=== PATIENT | female | born 1975 | race Caucasian/White ===

== ENCOUNTER → 2018-12-21 08:25 | Outpatient (CLI) | payer OTHER, MEDICAID, SELFPAY ==
[2018-12-21 09:15] LABS: Add Manual Diff / Slide Review NO; Basophils Absolute Auto 100 /uL (0-100); Basophils Percent Auto 1.2 % (0-2); Eosinophils Absolute Auto 0 /uL (0-450); Eosinophils Percent Auto 0.8 % (2-4); Hematocrit 39.1 % (36-46); Hemoglobin 13.2 g/dL (12.0-16.0); Lymphocytes Absolute Auto 1600 /uL (1100-4500); Lymphocytes Percent Auto 28.1 % (25-40); Mean Corpuscular HGB Conc 33.8 % (30-36); Mean Corpuscular Hemoglobin 32.2 PG (26-34); Mean Corpuscular Volume 95.2 fL (80-100); Monocytes Absolute Auto 400 /uL (0-900); Monocytes Percent Auto 6.7 % (3-14); Neutrophils Absolute Auto 3600 /uL (1500-7000); Neutrophils Percent Auto 63.2 % (50-75); Platelet Count 260 X10^3/uL (150-400); Red Blood Cell Count 4.11 X10^6/uL (4.0-5.2); Red Cell Distribution Width 12.2 % (11.6-14.8); White Blood Cell Count 5.8 X10^3/uL (4.5-11.0)
[2018-12-21 09:40] LABS: Alanine Aminotransferase 22 IU/L (9-52); Albumin 4.7 g/dL (3.5-5.0); Albumin Globulin Ratio 1.5 (1.0-2.8); Alkaline Phosphatase 53 U/L (38-126); Aspartate Aminotransferase 26 IU/L (14-36); Bilirubin Total 0.6 mg/dL (0.2-1.3); Blood Urea Nitrogen 12 mg/dL (7-17); Calcium 9.5 mg/dL (8.4-10.2); Carbon Dioxide 29 mmol/L (22-32); Chloride 102 mmol/L (98-107); Cholesterol 136 mg/dL (140-199); Estimated Glomerular Filt Rate > 60.0 mL/min (>60); Globulin 3.2 g/dL (1.7-4.1); Glucose 89 mg/dL (70-100); HDL Cholesterol 45 mg/dL (40-60); HEMOLYSIS < 15 (0-50); LDL Cholesterol Calculated 72 mg/dL (<100); Potassium 3.5 mmol/L (3.4-5.1); Sodium 139 mmol/L (137-145); Total Protein 7.9 g/dL (6.3-8.2); Triglycerides 96 mg/dL (35-150)
[2018-12-21 09:56] LABS: Free T3, Triiodothyronine Free 3.15 pg/mL (2.77-5.27); Free T4, Direct Thyroxine 0.93 ng/dL (0.78-2.19)
[2018-12-21 10:09] LABS: Thyroid Stimulating Hormone 0.87 uIU/mL (0.47-4.68)
== END ==
PROVIDERS: PCP Nurse Practitioner; Visit Provider Nurse Practitioner
DX: Z00.00 Encounter for general adult medical examination without abnormal findings (principal); F41.8 Other specified anxiety disorders; Z82.49 Family history of ischemic heart disease and other diseases of the circulatory system; Z82.3 Family history of stroke
CPT/HCPCS: 36415; 80053; 80061; 84439; 84443; 84481; 85025

== ENCOUNTER → 2018-12-25 15:26 | Outpatient (CLI) | payer OTHER, MEDICAID, SELFPAY ==
[2018-12-25 18:00] LABS: Hepatitis B Surface Antigen NEGATIVE s/c (NEGATIVE)
[2018-12-25 18:12] LABS: HIV 1 & 2 Ab/Ag 4th Gen Combo NEGATIVE (NEGATIVE); Hep C Virus Ab w/Reflex Quant NEGATIVE s/c (NEGATIVE)
[2018-12-28 09:10] LABS: Hepatitis B Surf Ab Qualitativ Nonreactive (Nonreactive)
[2018-12-28 16:47] LABS: Syphilis AB Cascading Reflex NEGATIVE (Negative)
[2019-01-01 14:43] LABS: HSV 1 IgM Screen Positive (Negative); HSV 2 IgM Screen Negative (Negative)
== END ==
PROVIDERS: PCP Nurse Practitioner; Visit Provider Nurse Practitioner
DX: Z11.3 Encounter for screening for infections with a predominantly sexual mode of transmission (principal)
CPT/HCPCS: 36415; 86695; 86696; 86706; 86780; 86803; 87340; 87389

== ENCOUNTER 2019-02-02 08:18 | Emergency (ER) | payer OTHER, MEDICAID, SELFPAY ==
[2019-02-02 08:25] VITALS: BP 108/90; PULSE 88; RESP 18; TEMP 36.5; O2SAT 100; BMI 23.3
[2019-02-02] MEDS: CYCLOBENZAPRINE 10 MG TABLET PO (08:57)
[2019-02-02] MEDS: IBUPROFEN 400 MG TABLET PO (08:57)
[2019-02-02 09:19] VITALS: BP 107/74; PULSE 70; RESP 16; O2SAT 100
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
== END 2019-02-02 09:21 | disposition home or self-care (01) ==
PROVIDERS: Emergency Provider Emergency Medicine; PCP Nurse Practitioner
DX: M25.512 Pain in left shoulder (principal)
CPT/HCPCS: 99282; 99283

== ENCOUNTER 2019-02-26 08:04 | Emergency (ER) | payer OTHER, MEDICAID, SELFPAY ==
[2019-02-26 08:20] VITALS: BP 117/81; PULSE 94; RESP 16; TEMP 36.1; O2SAT 100; BMI 22.4
[2019-02-26 09:48] LABS: Add Manual Diff / Slide Review NO; Basophils Absolute Auto 0 /uL (0-100); Basophils Percent Auto 0.6 % (0-2); Eosinophils Absolute Auto 100 /uL (0-450); Eosinophils Percent Auto 1.1 % (2-4); Hematocrit 39.2 % (36-46); Hemoglobin 13.6 g/dL (12.0-16.0); Lymphocytes Absolute Auto 1900 /uL (1100-4500); Lymphocytes Percent Auto 26.1 % (25-40); Mean Corpuscular HGB Conc 34.6 % (30-36); Mean Corpuscular Hemoglobin 32.8 PG (26-34); Mean Corpuscular Volume 94.8 fL (80-100); Monocytes Absolute Auto 400 /uL (0-900); Monocytes Percent Auto 5.8 % (3-14); Neutrophils Absolute Auto 4700 /uL (1500-7000); Neutrophils Percent Auto 66.4 % (50-75); Platelet Count 298 X10^3/uL (150-400); Red Blood Cell Count 4.14 X10^6/uL (4.0-5.2); Red Cell Distribution Width 12.4 % (11.6-14.8); White Blood Cell Count 7.2 X10^3/uL (4.5-11.0)
[2019-02-26] MEDS: KETOROLAC 60 MG/2 ML VIAL 30 MG IV (09:48)
[2019-02-26] MEDS: SODIUM CHLORIDE 0.9% 1,000 ML 1000 ML IV (09:48)
[2019-02-26] MEDS: HYDROMORPHONE 0.5 MG INJ IV (09:49)
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
[2019-02-26 09:59] LABS: Alanine Aminotransferase 25 IU/L (<35); Albumin 4.9 g/dL (3.5-5.0); Albumin Globulin Ratio 1.5 (1.0-2.8); Alkaline Phosphatase 67 U/L (38-126); Aspartate Aminotransferase 25 IU/L (14-36); BUN Creatinine Ratio 23.8 (6-22); Bilirubin Total 0.5 mg/dL (0.2-1.3); Blood Urea Nitrogen 19 mg/dL (7-17); Calcium 9.9 mg/dL (8.4-10.2); Carbon Dioxide 28 mmol/L (22-32); Chloride 103 mmol/L (98-107); Estimated Glomerular Filt Rate > 60.0 mL/min (>60); Globulin 3.3 g/dL (1.7-4.1); Glucose 83 mg/dL (70-100); HEMOLYSIS < 15 (0-50); Lipase 73 U/L (23-300); Potassium 4.3 mmol/L (3.4-5.1); Sodium 140 mmol/L (137-145); Total Protein 8.2 g/dL (6.3-8.2)
[2019-02-26 10:00] VITALS: BP 101/75
[2019-02-26 10:30] VITALS: BP 100/64
[2019-02-26 11:30] VITALS: BP 99/62; PULSE 100; RESP 17; O2SAT 100
--- NOTE | 2019-02-26 11:35 | DI.CT.S_ITS ---
PROCEDURE: CT ABDOMEN PELVIS W CON INDICATIONS: abdominal pain TECHNIQUE: After the administration of intravenous contrast, 5 mm thick sections acquired from the diaphragm to the symphysis. 5 mm coronal and sagittal reformats were acquired. For radiation dose reduction, the following was used: automated exposure control, adjustment of mA and/or kV according to patient size. COMPARISON: None. FINDINGS: Image quality: Excellent. ABDOMEN: Lung bases: Lung bases are clear. Heart size is normal. Solid organs: Liver is enlarged with steatosis. Gallbladder is unremarkable. Biliary system is non dilated. Pancreas enhances normally. Spleen is normal in size and enhancement. No adrenal nodules. Kidneys demonstrate normal size and enhancement, without hydronephrosis. Peritoneum and bowel: Bowel loops demonstrate normal wall thickness and caliber. No free fluid or air. Appendix is unremarkable. There is likely a punctate appendicolith within the terminal appendix. No surrounding inflammatory change. Nodes and vessels: No retroperitoneal or mesenteric adenopathy by size criteria. Aorta and inferior vena cava are normal in size. Miscellaneous: No ventral hernias. PELVIS: Genitourinary: Bladder wall thickness is normal. 17 mm low attenuation focus is present within the left ovary. Miscellaneous: No inguinal hernias or adenopathy. Bones: No suspicious bony lesions. No vertebral body compression fractures. IMPRESSION: 1. 17 mm focus of low attenuation within the left ovary suspicious for cyst. As clinically indicated, pelvic ultrasound may be obtained. 2. Appendix is unremarkable. Dictated by: Roberta Borges M.D. on 02/26/2019 at 12:06 Approved by: Roberta Borges M.D. on 02/26/2019 at 12:09
[2019-02-26 12:30] VITALS: BP 107/64; PULSE 77; RESP 16; O2SAT 100
[2019-02-26 14:00] VITALS: BP 108/64; PULSE 72; RESP 14; O2SAT 100
== END 2019-02-26 14:00 | disposition home or self-care (01) ==
PROVIDERS: Emergency Provider Emergency Medicine; PCP Nurse Practitioner
DX: S39.012A Strain of muscle, fascia and tendon of lower back, initial encounter (principal); T50.905A Adverse effect of unspecified drugs, medicaments and biological substances, initial encounter; S46.912D Strain of unspecified muscle, fascia and tendon at shoulder and upper arm level, left arm, subsequent encounter; R10.30 Lower abdominal pain, unspecified
CPT/HCPCS: 36415; 74177; 80053; 81003; 81025; 83690; 85025; 96361; 96374; 96375; 99284; J1170; J1885; Q9967

== ENCOUNTER 2019-04-30 15:15 | Outpatient (RCR) | payer OTHER, MEDICAID, SELFPAY ==
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
--- NOTE | 2019-04-02 16:40 | PT.OPPOC ---
Physical, Occupational & Speech Therapy At [facility] Current Diagnoses Pain in right hip (04/02/19) Right lower quadrant pain (04/02/19) Other symptoms and signs involving the musculoskeletal system (04/02/19) Visit Care Team Role Provider Type AYESHA Mccarty Attending Provider Advanced Channel Sales Director Primary Care Provider Referring Provider Specialty: Family Practice Address: [address] [place] [address], [facility] Email: [email or web address] Plan Of Care PT-OP-T Assessment and Plan Start: 04/02/19 12:58 Freq: Status: Active Protocol: Document 04/02/19 15:20 HH (Rec: 04/02/19 16:38 HH [email or web address]) Physical Therapy Assessment Rehab Potential Rehabilitation Potential Excellent Evaluation Complexity Number of Personal Factors/Comorbidities 1-2 Number of Body Systems Impaired 1-2 Clinical Presentation at Evaluation Stable Impairments Impairments Functional Activities, Functional Mobility,Pain, Posture,ROM,Sensation,Soft Tissue Mobility,Strength Goals neurological symptoms Impairment Pt has intermittent tingling sensation down to her L arm and hand everyday Short Term Goal (STG) Pt will have no more than 4 days/ week to experience neurological symptoms such as tingling/ numbness down to her L UE. STG Duration 4 weeks Jail Goal (LTG) Pt will have no more than 2 days/ week to experience neurological symptoms such as tingling/ numbness down to her L UE. LTG Duration 8 weeks ROM Impairment lack of cervical AROM d/t pain Short Term Goal (STG) Pt will increase L cervical rotation / lateral flexion by 10 degrees actively without increase neck/ L shoulder discomfort STG Duration 4 weeks Rocket Assembly Operator Goal (LTG) Pt will increase L cervical rotation / lateral flexion by 15 degrees actively without increase neck/ L shoulder discomfort LTG Duration 8 weeks Pain Impairment pt has significant pain 7-9 for head/ L shoulder movement Short Term Goal (STG) Pt will be able to tolerate active cervical / shoulder ROM without increase neck/ shoulder pain more than 5/10 STG Duration 4 weeks Rocket Assembly Operator Goal (LTG) Pt will be able to tolerate active cervical / shoulder ROM without increase neck/ shoulder pain more than 2/10 LTG Duration 8 weeks nDI Impairment will assess next time Quickdash Impairment Will assess next time Assessment Summary Assessment Pt is a 43 yo male presents to clinic with referral of R hip pain. However, pt reports she does not have hip pain but L shoulder and neck pain > LBP > hip pain started since Dec, 2018 who believes she injured herself while lifting heavy pot at work. Upon assessment, pt presents cervical radiculopathy symptoms due to her reproduced radiating L shoulder and arm pain and tingling sensation with +ve findings on Spurling, foraminal compression and facet joint tests. Pt is also very anxious about her current condition and needed PT's constant reassurance for her prognosis. 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 Pt will still be a good candidate for skilled therapy to address her aforementioned symptoms and impairments which includes manual therapy, cervical stabilization and strengthening and work conditioning. Physical Therapy Plan Frequency and Duration Frequency of Treatment 2x/Week Duration of Treatment 8 weeks Plan of Care Start Date 04/02/19 Plan of Care End Date 06/01/19 Therapeutic Interventions Therapeutic Interventions Gait Training,Home Exercise Program,Joint Mobilizations, Manual Therapy,Neuromuscular Re-education,Patient/Caregiver Education,Self-Care/Home Management,Soft Tissue Mobilization,Taping, Therapeutic Activities, Therapeutic Exercises Next Visit Focus/Plan Next Note Type Treatment Note Next Visit Plan assess post distraction tolerance shoulder ROM, strength, UTTT cervical distraction, neck stretch, manual therapy for levator, suboccipital, trap Plan of Care Dates Plan of Care Start Date 04/02/19 Plan of Care End Date 06/01/19 Electronically Signed by: Nancy Padgett PT 04/02/19 1640 Please Sign and Return: I have reviewed this Plan of Care and certify that the skilled therapy services above are required to meet the patient?s needs. Physician Signature Date Printed Name and Credentials Clinical Instructor Signature Printed Name and Credentials
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
--- NOTE | 2019-11-19 10:52 | PT.OPDS ---
Current Diagnoses Pain in right hip (04/30/19) Right lower quadrant pain (04/30/19) Other symptoms and signs involving the musculoskeletal system (04/30/19) Visit Care Team Role Provider Type AYESHA Mccarty Attending Provider Advanced Time Cycle Operator Primary Care Provider Referring Provider Specialty: Family Practice Address: [address] [place] [address], [facility] Email: [email or web address] Visit Number Visit Number 04/22 Discharge Summary PT-OP-T Assessment and Plan Start: 04/02/19 12:58 Freq: Status: Active Protocol: Document 11/19/19 10:51 (Rec: 11/19/19 10:52 [id number]) Physical Therapy Plan Discharge Physical Therapy Discharge Reasons No Longer Attending PT Discharge Comments 6 no shows before clinic closure. We have not heard back from patient about r/s since clinic re-opening. Per last tx note, pt was >80% better since IE. DC from PT today.
== END 2019-12-19 08:28 ==
LOC: PHYS 15:15
PROVIDERS: PCP Nurse Practitioner; Referring Provider Nurse Practitioner; Visit Provider Nurse Practitioner
DX: M25.551 Pain in right hip (principal); R10.31 Right lower quadrant pain; R29.898 Other symptoms and signs involving the musculoskeletal system
CPT/HCPCS: 97110; 97140; 97161

== ENCOUNTER 2019-07-05 11:07 | Emergency (ER) | payer OTHER, MEDICAID, SELFPAY ==
[2019-07-05 11:15] VITALS: BP 105/61; PULSE 85; RESP 19; TEMP 36.8; O2SAT 99
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
[2019-07-07 08:52] LABS: COVID19 Sendout Not Detected (Not Detected)
== END 2019-07-05 12:09 | disposition home or self-care (01) ==
PROVIDERS: Emergency Provider Nurse Practitioner; PCP Nurse Practitioner
DX: Z03.818 Encounter for observation for suspected exposure to other biological agents ruled out (principal); R05 Cough; J30.1 Allergic rhinitis due to pollen
CPT/HCPCS: 87635; 99281; 99282

== ENCOUNTER → 2020-01-10 16:00 | Outpatient (CLI) | payer OTHER, MEDICAID, SELFPAY ==
--- NOTE | 2020-01-10 16:04 | DI.RAD.S_ITS ---
PROCEDURE: XR HIP W PEL IF DONE LT MIN 4V INDICATIONS: lower back pain TECHNIQUE: AP pelvis with lateral view(s) of the left and right hip(s). COMPARISON: None. FINDINGS: Bones: No fracture. Mild bilateral hip joint spurring and sclerosis.. Soft tissues: The visualized bowel gas pattern is normal. No suspicious soft tissue calcifications. IMPRESSION: Mild degenerative changes. If the patient's pain or other symptoms persist, consider further evaluation with MRI Dictated by: Toby Dan M.D. on 01/10/2020 at 16:50 Approved by: Toby Dan M.D. on 01/10/2020 at 16:51
--- NOTE | 2020-01-10 16:04 | DI.RAD.S_ITS ---
PROCEDURE: XR LUMBAR SPINE 2-3V INDICATIONS: lower back pain TECHNIQUE: 3 views of the lumbar spine were acquired. COMPARISON: None. FINDINGS: Bones: No fracture. Diffuse facet arthropathy. Lower thoracic disc space narrowing. There is [id number] L5-S1 disc space narrowing. Soft tissues: Overlying bowel gas pattern is normal. No suspicious soft tissue calcifications. IMPRESSION: Lumbar spondylosis most pronounced at L5-S1 and diffuse facet arthropathy Dictated by: Toby Dan M.D. on 01/10/2020 at 16:48 Approved by: Toby Dan M.D. on 01/10/2020 at 16:50
== END ==
PROVIDERS: PCP Nurse Practitioner; Referring Provider Registered Nurse; Visit Provider Registered Nurse
DX: M54.5 Low back pain (principal); M47.817 Spondylosis without myelopathy or radiculopathy, lumbosacral region; M25.552 Pain in left hip; M25.551 Pain in right hip; M54.6 Pain in thoracic spine; G89.29 Other chronic pain
CPT/HCPCS: 72100; 73522

== ENCOUNTER → 2020-01-17 16:08 | Outpatient (CLI) | payer OTHER, MEDICAID, SELFPAY ==
--- NOTE | 2020-01-17 16:09 | DI.US.S_ITS ---
PROCEDURE: US PELVIC COMPLETE INDICATIONS: pelvic pain TECHNIQUE: Real-time scanning was performed of the pelvic organs, with image documentation. Additional endovaginal scanning was necessary due to incomplete visualization of the adnexal and endometrial structures by transabdominal scanning. COMPARISON: None. FINDINGS: Transabdominal scanning: Limited scanning through the kidneys shows no hydronephrosis. No pathologic free abdominal or pelvic fluid. Endovaginal scanning: Uterus: Uterus is normal in size at 10.3 x 4.5 x 5.2 cm. Normal uterine echotexture. The endometrium measures 6 mm in combined thickness. Ovaries: Right ovary measures 3.3 x 2.1 x 2.0 cm. There is a dominant follicle measuring 2.2 cm on the right. Left ovary measures 3.4 x 2.3 x 2.2 cm with a 2.0 cm dominant follicle. There is normal vascular flow identified in the bilateral ovaries. No suspicious ovarian/adnexal mass lesions. IMPRESSION: Unremarkable sonographic evaluation of the pelvis. No sonographic evidence for ovarian torsion. Dictated by: Kp Nuñez M.D. on 01/17/2020 at 21:50 Approved by: Kp Nuñez M.D. on 01/17/2020 at 21:53
== END ==
PROVIDERS: PCP Nurse Practitioner; Referring Provider Registered Nurse; Visit Provider Registered Nurse
DX: R10.2 Pelvic and perineal pain (principal)
CPT/HCPCS: 76856

== ENCOUNTER 2020-02-05 10:16 | Emergency (ER) | payer OTHER, MEDICAID, SELFPAY ==
[2020-02-05 10:29] VITALS: BP 124/85; PULSE 88; RESP 16; TEMP 36.9; O2SAT 100
[2020-02-05 12:51] VITALS: BP 123/85; PULSE 83; RESP 16; O2SAT 99
--- NOTE | 2020-02-05 13:00 | PC.NURSE ---
Pt states back pain from unk origin, chronic. states i had a shot at [employer] a few weeks ago no injury no recent accident. ambulatory to room. RR even and unlabored. appears uncomfortable
[2020-02-05] MEDS: KETOROLAC 60 MG/2 ML VIAL 30 MG IM (13:15)
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
== END 2020-02-05 13:31 | disposition home or self-care (01) ==
PROVIDERS: Emergency Provider Emergency Medicine; PCP Nurse Practitioner
DX: M54.5 Low back pain (principal)
CPT/HCPCS: 96372; 99281; 99283; J1885

== ENCOUNTER → 2021-04-26 12:47 | Outpatient (CLI) | payer OTHER, MEDICAID, SELFPAY ==
[2021-04-26 14:02] LABS: Cholesterol 185 mg/dL (140-199); HDL Cholesterol 43 mg/dL (40-60); LDL Cholesterol Calculated 87 mg/dL (<100); Triglycerides 273 mg/dL (35-150)
== END ==
PROVIDERS: PCP Nurse Practitioner; Referring Provider Nurse Practitioner; Visit Provider Nurse Practitioner
DX: Z00.00 Encounter for general adult medical examination without abnormal findings (principal)
CPT/HCPCS: 36415; 80061

== ENCOUNTER → 2021-05-12 07:01 | Outpatient (CLI) | payer OTHER, MEDICAID, SELFPAY ==
[2021-05-12 08:10] LABS: Hematocrit 37.1 % (36-46); Hemoglobin 12.6 g/dL (12.0-16.0); Mean Corpuscular HGB Conc 33.9 % (30-36); Mean Corpuscular Hemoglobin 31.7 PG (26-34); Mean Corpuscular Volume 93.3 fL (80-100); Platelet Count 303 X10^3/uL (150-400); Red Blood Cell Count 3.97 X10^6/uL (4.0-5.2); Red Cell Distribution Width 12.3 % (11.6-14.8); White Blood Cell Count 5.9 X10^3/uL (4.5-11.0)
[2021-05-12 08:20] LABS: Alanine Aminotransferase 127 IU/L (<35); Albumin 4.3 g/dL (3.5-5.0); Albumin Globulin Ratio 1.2 (1.0-2.8); Alkaline Phosphatase 72 U/L (38-126); Aspartate Aminotransferase 76 IU/L (14-36); BUN Creatinine Ratio 15.9 (6-22); Bilirubin Total 0.4 mg/dL (0.2-1.3); Blood Urea Nitrogen 10 mg/dL (7-17); Calcium 8.6 mg/dL (8.4-10.2); Carbon Dioxide 31 mmol/L (22-32); Chloride 101 mmol/L (98-107); Estimated Glomerular Filt Rate > 60.0 mL/min (>60); Globulin 3.5 g/dL (1.7-4.1); Glucose 104 mg/dL (70-100); HEMOLYSIS 20 (0-50); Sodium 138 mmol/L (137-145); Total Protein 7.8 g/dL (6.3-8.2)
[2021-05-12 08:37] LABS: Free T4, Direct Thyroxine 0.91 ng/dL (0.78-2.19)
[2021-05-12 08:50] LABS: Thyroid Stimulating Hormone 2.61 uIU/mL (0.47-4.68)
[2021-05-12 09:17] LABS: Microalbumi Creatinin Ratio Ur 1028.1 ug/mg CR (<30); Microalbumin Urine Random 32.9 mg/dL (0-1.6)
== END ==
PROVIDERS: Family Provider Nurse Practitioner; PCP Nurse Practitioner; Referring Provider Nurse Practitioner; Visit Provider Nurse Practitioner
DX: Z00.00 Encounter for general adult medical examination without abnormal findings (principal)
CPT/HCPCS: 36415; 80053; 82043; 82570; 84439; 84443; 84481; 85027

== ENCOUNTER → 2021-08-16 07:06 | Outpatient (CLI) | payer OTHER, MEDICAID, SELFPAY ==
--- NOTE | 2021-08-16 07:07 | DI.RAD.S_ITS ---
PROCEDURE: XR LUMBAR SPINE MIN 4V INDICATIONS: BACK PAIN TECHNIQUE: 5 views of the lumbar spine were acquired, including bilateral oblique views. COMPARISON: None. FINDINGS: Bones: 5 nonrib-bearing vertebrae are present. There is normal bony alignment. No vertebral body compression fractures. No suspicious bony lesions. Soft tissues: Overlying bowel gas pattern is normal. No suspicious soft tissue calcifications. Oblique images: No pars defects. IMPRESSION: No fracture. No osseous lesion. If symptoms and/or clinical suspicion for pathology persists, evaluation with MRI should be considered for further assessment. Dictated by: Karis Ruiz MD, PhD on 08/16/2021 at 9:58 Approved by: Karis Ruiz MD, PhD on 08/16/2021 at 9:59
== END ==
PROVIDERS: Family Provider Nurse Practitioner; PCP Nurse Practitioner; Referring Provider Nurse Practitioner; Visit Provider Nurse Practitioner
DX: M47.816 Spondylosis without myelopathy or radiculopathy, lumbar region (principal); M51.27 Other intervertebral disc displacement, lumbosacral region; M54.9 Dorsalgia, unspecified
CPT/HCPCS: 72110; 99214

== ENCOUNTER 2021-12-04 06:35 | Emergency (ER) | payer OTHER, MEDICAID, SELFPAY ==
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
[2021-12-04 06:45] VITALS: BP 136/60; PULSE 114; RESP 18; O2SAT 100; BMI 27.3
[2021-12-04] MEDS: predniSONE 20 MG TABLET 40 MG PO (06:49)
[2021-12-04] MEDS: GABAPENTIN 300 MG CAPSULE PO (06:49)
[2021-12-04] MEDS: KETOROLAC 30 MG/ML VIAL IM (06:49)
== END 2021-12-04 07:20 | disposition home or self-care (01) ==
PROVIDERS: Emergency Provider Emergency Medicine; Family Provider Nurse Practitioner; PCP Nurse Practitioner
DX: M54.16 Radiculopathy, lumbar region (principal)
CPT/HCPCS: 96372; 99283; J1885

== ENCOUNTER → 2021-12-20 12:37 | Outpatient (CLI) | payer OTHER, MEDICAID, SELFPAY ==
--- NOTE | 2021-12-20 12:40 | DI.MRI.S_ITS ---
PROCEDURE: MR LUMBAR SPINE WO CON INDICATIONS: lumbar radiculopathy TECHNIQUE: Noncontrast sagittal T1 spin echo and T2 fast echo, sagittal STIR, and T2 fast spin echo through the lumbar spine. In cases with scoliosis, additional coronal T2 fast spin echo may be performed. COMPARISON: Located Within [facility], CR, XR LUMBAR SPINE 2-3V, 01/10/2020, 16:11. Located Within [facility], CT, CT ABDOMEN PELVIS W CON, 02/26/2019, 11:31. Located Within [facility], CR, XR LUMBAR SPINE MIN 4V, 08/16/2021, 6:57. FINDINGS: Image quality: This examination is limited by involuntary motion artifact. Alignment and Curvature: There is normal bony alignment. Bone Marrow: Marrow is of normal overall signal. No acute vertebral body compression fractures. Spinal Cord: Conus medullaris terminates at the L1-L2 level. Visualized cord demonstrates normal signal and size. Paraspinous Soft Tissues: No paravertebral masses. T12-L1: Normal appearance. L1-L2: Normal appearance. L2-L3: Normal appearance. L3-L4: Normal appearance. L4-L5: The disc height and disk signal are well-preserved. Mild generalized disc bulge is seen. Mild to moderate facet hypertrophy is seen. Moderate bilateral neural foraminal narrowing is seen. The central canal is widely patent. L5-S1: Mild loss of disc height is seen. Loss of disc signal is seen. Mild to moderate disc bulge is seen. Mild to moderate facet hypertrophy is seen. There is moderate to severe bilateral neural foraminal narrowing seen, with an associated a degree of compression seen upon the exiting nerve roots. Mild central canal narrowing is seen. IMPRESSION: Lower lumbar spine degenerative changes are seen, which are worst at L5-S1, where there is moderate to severe bilateral neural foraminal narrowing, with associated bilateral exiting L5 nerve root compression. Dictated by: Shai Harrison M.D. on 12/20/2021 at 12:52 Approved by: Shai Harrison M.D. on 12/20/2021 at 12:55
== END ==
PROVIDERS: Family Provider Nurse Practitioner; PCP Nurse Practitioner; Referring Provider Physical Medicine & Rehabilitation; Visit Provider Physical Medicine & Rehabilitation
DX: M47.27 Other spondylosis with radiculopathy, lumbosacral region (principal); M47.26 Other spondylosis with radiculopathy, lumbar region; M51.17 Intervertebral disc disorders with radiculopathy, lumbosacral region; M48.07 Spinal stenosis, lumbosacral region; M48.061 Spinal stenosis, lumbar region without neurogenic claudication
CPT/HCPCS: 72148

== ENCOUNTER 2022-01-12 11:01 | Emergency (ER) | payer OTHER, MEDICAID, SELFPAY ==
[2022-01-12 11:12] VITALS: BP 124/75; PULSE 95; RESP 16; TEMP 36.4; O2SAT 100; BMI 26.4
[2022-01-12 12:22] LABS: Influenza A - CEPHEID Flu A NEGATIVE (NEGATIVE); Influenza B - CEPHEID Flu B NEGATIVE (NEGATIVE); Respiratory Syncytial Virus Negative (Negative)
[2022-01-12 12:24] LABS: COVID-19 CEPHEID 4-PLEX PCR POSITIVE (Negative)
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
== END 2022-01-12 12:52 | disposition home or self-care (01) ==
PROVIDERS: Emergency Medicine; Emergency Provider Nurse Practitioner Critical Care Medicine; Family Provider Nurse Practitioner; PCP Nurse Practitioner
DX: U07.1 COVID-19 (principal)
CPT/HCPCS: 0241U; 99281; 99282